=== PATIENT | male | born 1975 | race Caucasian/White ===

== ENCOUNTER 2017-08-19 17:43 | Emergency (ER) | payer MEDICAID ==
[~2017-08-19] VITALS: Ht 190.5 cm; Wt 138.8 kg
[2017-08-19 18:07] VITALS: BP_SYST 153
== END 2017-08-19 18:17 | disposition left against medical advice (07) ==
LOC: SED 17:43
DX: T82.49XA Other complication of vascular dialysis catheter, initial encounter (principal); Z88.1 Allergy status to other antibiotic agents

== ENCOUNTER 2023-02-07 10:22 | Inpatient (IN) | payer MEDICAID ==
[~2023-02-07] VITALS: Ht 190.5 cm; Wt 143.8 kg
[2023-02-07 10:23] VITALS: BP_SYST 221; PULSE 62; RESP 17; TEMP 97; O2SAT 99
[2023-02-07] MEDS ORDERED: DEXTROSE 50% JECT 50 ML DISP.SYRIN ONE (10:28)
[2023-02-07] MEDS ORDERED: DEXTROSE 10%-WATER 500 ML IV SCH ×2 (10:30)
[2023-02-07] MEDS ORDERED: DEXTROSE 50% JECT 50 ML DISP.SYRIN IVP ONE (10:30)
[2023-02-07] MEDS ORDERED: ONDANSETRON HCL 4 MG/2 ML VIAL ONE (10:41)
[2023-02-07] MEDS ORDERED: ONDANSETRON HCL 4 MG/2 ML VIAL IVP ONE (10:45)
[2023-02-07 11:05] LABS: BASOPHILS # (AUTO) 0.1 K/uL (0.0-0.2); BASOPHILS % (AUTO) 0.7 % (0.0-2.0); EOSINOPHILS # (AUTO) 0.4 K/uL (0.0-0.4); EOSINOPHILS % (AUTO) 3.3 % (0.0-4.0); HEMATOCRIT 29.9 % (36-54); HEMOGLOBIN 9.9 g/dL (14.0-18.0); LYMPHOCYTES # (AUTO) 1.5 K/uL (1.0-5.5); LYMPHOCYTES % (AUTO) 13.9 % (20.5-51.5); MEAN CORPUSCULAR HEMOGLOBIN 29 pg (27-31); MEAN CORPUSCULAR HGB CONC 33 % (32-36); MEAN CORPUSCULAR VOLUME 87 fL (79.0-98.0); MONOCYTES # (AUTO) 0.9 K/uL (0.0-1.0); MONOCYTES % (AUTO) 8.1 % (1.7-9.3); NEUTROPHILS # (AUTO) 7.8 K/uL (1.8-7.7); PLATELET COUNT (AUTO) 235 K/uL (130-430); RED BLOOD CELL COUNT(AUTO) 3.45 MIL/uL (4.2-6.2); RED CELL DISTRIBUTION WIDTH 13.3 % (9.0-15.0); WHITE BLOOD COUNT (AUTO) 10.6 K/uL (4.8-10.8)
[2023-02-07 11:25] LABS: CALCIUM 8.1 mg/dL (8.4-11.0); CREATININE 6.98 mg/dL (0.55-1.30); POTASSIUM 4.1 mmol/L (3.5-5.1)
[2023-02-07 11:27] LABS: ALBUMIN 2.7 g/dL (3.4-4.8); TOTAL BILIRUBIN 0.3 mg/dL (0.0-1.0)
[2023-02-07] MEDS ORDERED: D10W 250 ML IV SCH (11:45)
[2023-02-07] MEDS ORDERED: hydrALAZINE HCL 20 MG/ML VIAL IVP ONE (11:45)
[2023-02-07] MEDS ORDERED: CETIRIZINE (14:28)
[2023-02-07] MEDS ORDERED: CARV25TA55 PO (14:28)
[2023-02-07] MEDS ORDERED: FURO40TA5 PO (14:28)
[2023-02-07] MEDS ORDERED: INSU100V35 SUBCUT (14:28)
[2023-02-07] MEDS ORDERED: ISOS20TA8 PO (14:28)
[2023-02-07] MEDS ORDERED: HYDR100T25 PO (14:28)
[2023-02-07] MEDS ORDERED: ONDANSETRON HCL 4 MG/2 ML VIAL IVP PRN (15:15)
[2023-02-07] MEDS ORDERED: MORPHINE 2 MG/ML INJ. SYRINGE IVP PRN ×2 (15:15)
[2023-02-07] MEDS ORDERED: DOCUSATE SODIUM 100 MG CAPSULE PO PRN (15:15)
[2023-02-07] MEDS ORDERED: MUPIROCIN 2% TOPICAL OINTMENT 22 GM NS PRN (15:15)
[2023-02-07] MEDS ORDERED: POTASSIUM CHLORIDE 20 MEQ TAB.PRT.SR PO PRN (15:15)
[2023-02-07] MEDS ORDERED: ACETAMINOPHEN 325 MG TABLET PO PRN ×2 (15:15→15:30)
[2023-02-07] MEDS ORDERED: ZOLPIDEM TARTRATE 5 MG TABLET PO PRN (15:15)
[2023-02-07] MEDS ORDERED: MAGNESIUM SULFATE 50 ML IV PRN (15:15)
[2023-02-07] MEDS ORDERED: LORazepam 2 MG/ML VIAL IVP PRN (15:15)
[2023-02-07] MEDS ORDERED: NALOXONE HCL 0.4 MG/ML AMP (NARCAN) IVP PRN ×2 (15:15)
[2023-02-07] MEDS ORDERED: cloNIDine HCL 0.2 MG TABLET PO PRN (15:30)
[2023-02-07] MEDS: NACL 0.9% 1,000 ML IV SCH ×2 (15:30→21:37)
[2023-02-07 15:57] LABS: TOTAL IRON BIND. CAPACITY 221 ug/dL (250-450)
[2023-02-07] MEDS ORDERED: cloNIDine HCL 0.1 MG TABLET ONE (17:16)
[2023-02-07] MEDS: INSULIN REGULAR, HUMAN 100 UNITS/ML, 3 ML VIAL (humuLIN R) SUBCUT PRN ×2 (18:18→21:32)
[2023-02-07] MEDS ORDERED: INSULIN REGULAR, HUMAN 10 UNITS/0.1 ML, 3 ML VIAL ONE (18:19)
[2023-02-07] MEDS ORDERED: INSULIN Lispro 100 UNITS/ML, 3 ML VIAL (humaLOG) ONE (18:31)
[2023-02-07] MEDS ORDERED: METOPROLOL TARTRATE 5 MG/5 ML VIAL IVP PRN (19:15)
[2023-02-07] MEDS ORDERED: NIFEDIPINE 90 MG TABLET.SA (PROCARDIA XL 90 MG) PO ONE (19:15)
[2023-02-07] MEDS ORDERED: INSULIN NPH/REGULAR 70-30, 100 UNITS/ML, 3 ML VIAL SUBCUT ONE (19:15)
[2023-02-07] MEDS: hydrALAZINE HCL 25 MG TABLET PO SCH (21:22)
[2023-02-07] MEDS: CARVEDILOL 25 MG TABLET (COREG) PO SCH (21:23)
[2023-02-07] MEDS: ISOSORBIDE DINITRATE 20 MG TABLET (ISORDIL) PO SCH (21:24)
[2023-02-07] MEDS: INSULIN GLARGINE 100 UNITS/ML, 10 ML VIAL SUBCUT SCH (21:30)
[2023-02-07 21:38] VITALS: BP_SYST 123; PULSE 80; RESP 17; TEMP 97.3; O2SAT 98
[2023-02-07 23:40] VITALS: BP_SYST 125; PULSE 88; RESP 18; TEMP 97.8; O2SAT 96
[2023-02-08] MEDS: INSULIN REGULAR, HUMAN 100 UNITS/ML, 3 ML VIAL (humuLIN R) SUBCUT PRN ×3 (06:29→21:53)
[2023-02-08] MEDS: NACL 0.9% 1,000 ML IV SCH ×2 (07:15→18:37)
[2023-02-08 07:36] LABS: BASOPHILS % (AUTO) 0.7 % (0.0-2.0); EOSINOPHILS # (AUTO) 0.2 K/uL (0.0-0.4); EOSINOPHILS % (AUTO) 2.8 % (0.0-4.0); HEMATOCRIT 26.1 % (36-54); HEMOGLOBIN 8.8 g/dL (14.0-18.0); LYMPHOCYTES # (AUTO) 1.3 K/uL (1.0-5.5); MEAN CORPUSCULAR HEMOGLOBIN 29 pg (27-31); MEAN CORPUSCULAR HGB CONC 34 % (32-36); MEAN CORPUSCULAR VOLUME 87 fL (79.0-98.0); MONOCYTES # (AUTO) 0.7 K/uL (0.0-1.0); MONOCYTES % (AUTO) 10.1 % (1.7-9.3); NEUTROPHILS # (AUTO) 4.3 K/uL (1.8-7.7); NEUTROPHILS % (AUTO) 66.4 % (40.0-70.0); PLATELET COUNT (AUTO) 199 K/uL (130-430); RED BLOOD CELL COUNT(AUTO) 3.01 MIL/uL (4.2-6.2); RED CELL DISTRIBUTION WIDTH 13.3 % (9.0-15.0); WHITE BLOOD COUNT (AUTO) 6.5 K/uL (4.8-10.8)
[2023-02-08 07:43] LABS: CALCIUM 7.4 mg/dL (8.4-11.0); POTASSIUM 5.1 mmol/L (3.5-5.1)
[2023-02-08 07:45] VITALS: BP_SYST 111; PULSE 73; RESP 16; TEMP 97.6; O2SAT 96
[2023-02-08 07:48] LABS: CREATININE 7.85 mg/dL (0.55-1.30)
[2023-02-08] MEDS: hydrALAZINE HCL 25 MG TABLET PO SCH ×3 (09:52→21:39)
[2023-02-08] MEDS: ISOSORBIDE DINITRATE 20 MG TABLET (ISORDIL) PO SCH ×2 (09:53→15:39)
[2023-02-08] MEDS: CARVEDILOL 25 MG TABLET (COREG) PO SCH ×2 (09:53→21:40)
[2023-02-08] MEDS: FERROUS SULFATE 325 MG TABLET.DR PO SCH (09:53)
[2023-02-08] MEDS: NIFEDIPINE 90 MG TABLET.SA (PROCARDIA XL 90 MG) PO SCH (09:54)
[2023-02-08 12:00] VITALS: BP_SYST 114; PULSE 74; RESP 18; TEMP 97.9; O2SAT 96
[2023-02-08 16:00] VITALS: BP_SYST 121; PULSE 78; RESP 19; TEMP 97.7; O2SAT 97
[2023-02-08 20:15] VITALS: O2SAT 96
[2023-02-08 20:30] VITALS: BP_SYST 119; PULSE 83; RESP 18; TEMP 98.8; O2SAT 96
[2023-02-08] MEDS: SODIUM BICARBONATE 650 MG TABLET PO SCH (21:00)
[2023-02-08] MEDS: INSULIN GLARGINE 100 UNITS/ML, 10 ML VIAL SUBCUT SCH (21:00)
[2023-02-09 01:00] VITALS: BP_SYST 138; PULSE 76; RESP 18; TEMP 98
[2023-02-09] MEDS: ISOSORBIDE DINITRATE 20 MG TABLET (ISORDIL) PO SCH ×4 (01:12→21:00)
[2023-02-09] MEDS: SODIUM BICARBONATE 650 MG TABLET PO SCH ×3 (05:55→20:59)
[2023-02-09] MEDS: NACL 0.9% 1,000 ML IV SCH ×2 (06:01→14:51)
[2023-02-09 07:22] LABS: BASOPHILS # (AUTO) 0.1 K/uL (0.0-0.2); BASOPHILS % (AUTO) 0.7 % (0.0-2.0); EOSINOPHILS # (AUTO) 0.3 K/uL (0.0-0.4); EOSINOPHILS % (AUTO) 4.6 % (0.0-4.0); HEMOGLOBIN 8.7 g/dL (14.0-18.0); LYMPHOCYTES # (AUTO) 1.7 K/uL (1.0-5.5); LYMPHOCYTES % (AUTO) 24.1 % (20.5-51.5); MEAN CORPUSCULAR HEMOGLOBIN 29 pg (27-31); MEAN CORPUSCULAR HGB CONC 33 % (32-36); MEAN CORPUSCULAR VOLUME 87 fL (79.0-98.0); MONOCYTES # (AUTO) 0.5 K/uL (0.0-1.0); MONOCYTES % (AUTO) 7.6 % (1.7-9.3); NEUTROPHILS # (AUTO) 4.4 K/uL (1.8-7.7); PLATELET COUNT (AUTO) 191 K/uL (130-430); RED BLOOD CELL COUNT(AUTO) 3.01 MIL/uL (4.2-6.2); RED CELL DISTRIBUTION WIDTH 13.3 % (9.0-15.0); WHITE BLOOD COUNT (AUTO) 6.9 K/uL (4.8-10.8)
[2023-02-09 07:34] LABS: CALCIUM 7.5 mg/dL (8.4-11.0); POTASSIUM 4.6 mmol/L (3.5-5.1)
[2023-02-09 07:38] LABS: CREATININE 8.34 mg/dL (0.55-1.30)
[2023-02-09 08:00] VITALS: BP_SYST 160; PULSE 84; RESP 16; TEMP 97.7; O2SAT 96; O2SAT 97
[2023-02-09] MEDS: hydrALAZINE HCL 25 MG TABLET PO SCH ×3 (08:53→21:01)
[2023-02-09] MEDS: FERROUS SULFATE 325 MG TABLET.DR PO SCH (08:54)
[2023-02-09] MEDS: CARVEDILOL 25 MG TABLET (COREG) PO SCH ×2 (08:54→21:00)
[2023-02-09] MEDS: NIFEDIPINE 90 MG TABLET.SA (PROCARDIA XL 90 MG) PO SCH (08:55)
[2023-02-09 12:27] VITALS: BP_SYST 150; PULSE 80; RESP 17; TEMP 97.9; O2SAT 97
[2023-02-09 16:48] VITALS: BP_SYST 154; PULSE 83; RESP 16; TEMP 97.8; O2SAT 96
[2023-02-09 20:00] VITALS: BP_SYST 146; PULSE 82; RESP 18; TEMP 97.8; O2SAT 96
[2023-02-09] MEDS: INSULIN GLARGINE 100 UNITS/ML, 10 ML VIAL SUBCUT SCH (21:00)
[2023-02-10 00:07] VITALS: BP_SYST 149; PULSE 81; RESP 18; TEMP 98.3; O2SAT 95
[2023-02-10] MEDS ORDERED: DEXTROSE 50% JECT 50 ML DISP.SYRIN ONE (00:50)
[2023-02-10] MEDS ORDERED: D5W 1,000 ML IV PRN (01:00)
[2023-02-10] MEDS ORDERED: GLUCOSE (DEXTROSE) ORAL GEL -Adults PO PRN (01:00)
[2023-02-10] MEDS ORDERED: DEXTROSE 50% JECT 50 ML DISP.SYRIN IVP PRN (01:00)
[2023-02-10] MEDS: NACL 0.9% 1,000 ML IV SCH ×2 (06:06→17:10)
[2023-02-10 06:34] LABS: BASOPHILS % (AUTO) 0.6 % (0.0-2.0); EOSINOPHILS # (AUTO) 0.2 K/uL (0.0-0.4); EOSINOPHILS % (AUTO) 4.2 % (0.0-4.0); HEMATOCRIT 23.5 % (36-54); HEMOGLOBIN 7.9 g/dL (14.0-18.0); LYMPHOCYTES # (AUTO) 1.2 K/uL (1.0-5.5); LYMPHOCYTES % (AUTO) 19.4 % (20.5-51.5); MEAN CORPUSCULAR HEMOGLOBIN 29 pg (27-31); MEAN CORPUSCULAR HGB CONC 34 % (32-36); MEAN CORPUSCULAR VOLUME 87 fL (79.0-98.0); MONOCYTES # (AUTO) 0.4 K/uL (0.0-1.0); MONOCYTES % (AUTO) 7.4 % (1.7-9.3); NEUTROPHILS # (AUTO) 4.1 K/uL (1.8-7.7); NEUTROPHILS % (AUTO) 68.4 % (40.0-70.0); PLATELET COUNT (AUTO) 179 K/uL (130-430); RED CELL DISTRIBUTION WIDTH 13.4 % (9.0-15.0)
[2023-02-10 07:02] LABS: CALCIUM 7.3 mg/dL (8.4-11.0)
[2023-02-10 07:06] LABS: CREATININE 7.91 mg/dL (0.55-1.30)
[2023-02-10 08:00] VITALS: BP_SYST 150; PULSE 78; RESP 16; TEMP 98.4; O2SAT 96; O2SAT 97
[2023-02-10] MEDS: hydrALAZINE HCL 25 MG TABLET PO SCH ×3 (09:49→21:07)
[2023-02-10] MEDS: CARVEDILOL 25 MG TABLET (COREG) PO SCH ×2 (09:50→21:07)
[2023-02-10] MEDS: FERROUS SULFATE 325 MG TABLET.DR PO SCH (09:50)
[2023-02-10] MEDS: ISOSORBIDE DINITRATE 20 MG TABLET (ISORDIL) PO SCH ×3 (09:50→21:05)
[2023-02-10] MEDS: NIFEDIPINE 90 MG TABLET.SA (PROCARDIA XL 90 MG) PO SCH (09:51)
[2023-02-10] MEDS: SODIUM BICARBONATE 650 MG TABLET PO SCH ×3 (09:51→21:05)
[2023-02-10] MEDS ORDERED: SODIUM ZIRCONIUM CYCLOSILICATE 10 GM POWD.PACK PO ONE (11:15)
[2023-02-10] MEDS ORDERED: EPOETIN ALFA-EPBX 20,000 UNITS/ML VIAL SUBCUT ONE (13:30)
[2023-02-10 14:15] VITALS: BP_SYST 139; PULSE 85; RESP 16; TEMP 98.1; O2SAT 95
[2023-02-11 00:44] VITALS: BP_SYST 140; PULSE 86; RESP 18; TEMP 97.5; O2SAT 97
[2023-02-11 05:53] LABS: BASOPHILS % (AUTO) 0.7 % (0.0-2.0); EOSINOPHILS # (AUTO) 0.2 K/uL (0.0-0.4); EOSINOPHILS % (AUTO) 4.6 % (0.0-4.0); HEMATOCRIT 24.3 % (36-54); HEMOGLOBIN 7.9 g/dL (14.0-18.0); LYMPHOCYTES # (AUTO) 1.5 K/uL (1.0-5.5); LYMPHOCYTES % (AUTO) 31.9 % (20.5-51.5); MEAN CORPUSCULAR HEMOGLOBIN 29 pg (27-31); MEAN CORPUSCULAR HGB CONC 33 % (32-36); MEAN CORPUSCULAR VOLUME 88 fL (79.0-98.0); MONOCYTES # (AUTO) 0.5 K/uL (0.0-1.0); MONOCYTES % (AUTO) 10.9 % (1.7-9.3); NEUTROPHILS # (AUTO) 2.5 K/uL (1.8-7.7); NEUTROPHILS % (AUTO) 51.9 % (40.0-70.0); PLATELET COUNT (AUTO) 183 K/uL (130-430); RED BLOOD CELL COUNT(AUTO) 2.77 MIL/uL (4.2-6.2); RED CELL DISTRIBUTION WIDTH 13.6 % (9.0-15.0); WHITE BLOOD COUNT (AUTO) 4.8 K/uL (4.8-10.8)
[2023-02-11 06:12] LABS: CALCIUM 7.3 mg/dL (8.4-11.0); POTASSIUM 4.9 mmol/L (3.5-5.1)
[2023-02-11 06:26] LABS: CREATININE 7.93 mg/dL (0.55-1.30)
[2023-02-11] MEDS: NACL 0.9% 1,000 ML IV SCH (07:19)
[2023-02-11 08:03] VITALS: BP_SYST 171; PULSE 87; RESP 17; TEMP 97.8; O2SAT 98
[2023-02-11] MEDS: FERROUS SULFATE 325 MG TABLET.DR PO SCH (08:17)
[2023-02-11] MEDS: SODIUM BICARBONATE 650 MG TABLET PO SCH ×2 (08:17→14:54)
[2023-02-11] MEDS: CARVEDILOL 25 MG TABLET (COREG) PO SCH (08:18)
[2023-02-11] MEDS: NIFEDIPINE 90 MG TABLET.SA (PROCARDIA XL 90 MG) PO SCH (08:18)
[2023-02-11] MEDS: ISOSORBIDE DINITRATE 20 MG TABLET (ISORDIL) PO SCH ×2 (08:19→14:54)
[2023-02-11] MEDS: hydrALAZINE HCL 25 MG TABLET PO SCH ×2 (08:20→14:54)
[2023-02-11 10:07] VITALS: BP_SYST 165; PULSE 93; RESP 18; TEMP 98.4; O2SAT 97
[2023-02-11] MEDS ORDERED: NIFE90TA24 PO (11:48)
[2023-02-11] MEDS ORDERED: hydrALAZINE HCL 20 MG/ML VIAL IVP PRN (12:00)
[2023-02-11 14:00] VITALS: BP_SYST 153; PULSE 89; RESP 18; TEMP 98.2; O2SAT 97
[2023-02-11 15:05] VITALS: BP_SYST 153; PULSE 89; RESP 20; TEMP 98.2; O2SAT 97
== END 2023-02-11 16:34 | disposition home or self-care (01) | DRG 420 ==
LOC: SED 10:22 → SMU 14:10 → STU 19:47
PROVIDERS: ADMIT General Practice; ATTEND General Practice
DX: E10.649 Type 1 diabetes mellitus with hypoglycemia without coma (principal); N17.0 Acute kidney failure with tubular necrosis; E44.0 Moderate protein-calorie malnutrition; D63.1 Anemia in chronic kidney disease; I12.0 Hypertensive chronic kidney disease with stage 5 chronic kidney disease or end stage renal disease; N18.6 End stage renal disease; D50.9 Iron deficiency anemia, unspecified; T38.3X5A Adverse effect of insulin and oral hypoglycemic [antidiabetic] drugs, initial encounter; I16.0 Hypertensive urgency; E78.5 Hyperlipidemia, unspecified; E66.9 Obesity, unspecified; I25.10 Atherosclerotic heart disease of native coronary artery without angina pectoris; Z96.41 Presence of insulin pump (external) (internal); E87.5 Hyperkalemia; E10.22 Type 1 diabetes mellitus with diabetic chronic kidney disease; Z79.4 Long term (current) use of insulin; Z95.0 Presence of cardiac pacemaker; Z68.39 Body mass index [BMI] 39.0-39.9, adult
CPT/HCPCS: 36415; 71045; 76770; 80048; 80053; 82607; 82728; 82746; 82962; 83037; 83540; 83550; 83735; 83880; 84443; 85025; 96361; 96374; 96375; 99285; G0378; J0360; J1815; J2405; J3490; Q5106

== ENCOUNTER 2023-03-21 14:21 | Emergency (ER) | payer MEDICAID ==
[~2023-03-21] VITALS: Ht 190.5 cm; Wt 136.1 kg
[~2023-03-21 14:21] MED LIST: CARV25TA55 PO; CETIRIZINE; FURO40TA5 PO; HYDR100T25 PO; INSU100V35 SUBCUT; ISOS20TA8 PO; NIFE90TA24 PO
[2023-03-21 14:44] VITALS: BP_SYST 145; PULSE 81; RESP 19; TEMP 97.4; O2SAT 100
[2023-03-21] MEDS ORDERED: NS 500 ML IV ONE (15:00)
[2023-03-21] MEDS ORDERED: ACETAMINOPHEN 500 MG TABLET PO ONE (15:00)
[2023-03-21] MEDS ORDERED: DIPHENHYDRAMINE INJ 50 MG/ML VIAL IVP ONE (15:00)
[2023-03-21] MEDS ORDERED: METOCLOPRAMIDE HCL 10 MG/2 ML VIAL IVP ONE (15:00)
[2023-03-21 16:21] LABS: BASOPHILS # (AUTO) 0.1 K/uL (0.0-0.2); BASOPHILS % (AUTO) 0.9 % (0.0-2.0); EOSINOPHILS # (AUTO) 0.3 K/uL (0.0-0.4); EOSINOPHILS % (AUTO) 4.1 % (0.0-4.0); HEMOGLOBIN 8.5 g/dL (14.0-18.0); LYMPHOCYTES # (AUTO) 1.1 K/uL (1.0-5.5); LYMPHOCYTES % (AUTO) 15.9 % (20.5-51.5); MEAN CORPUSCULAR HEMOGLOBIN 30 pg (27-31); MEAN CORPUSCULAR HGB CONC 34 % (32-36); MEAN CORPUSCULAR VOLUME 88 fL (79.0-98.0); MONOCYTES # (AUTO) 0.6 K/uL (0.0-1.0); MONOCYTES % (AUTO) 8.7 % (1.7-9.3); NEUTROPHILS # (AUTO) 4.8 K/uL (1.8-7.7); NEUTROPHILS % (AUTO) 70.4 % (40.0-70.0); PLATELET COUNT (AUTO) 280 K/uL (130-430); RED BLOOD CELL COUNT(AUTO) 2.86 MIL/uL (4.2-6.2); RED CELL DISTRIBUTION WIDTH 15.9 % (9.0-15.0); WHITE BLOOD COUNT (AUTO) 6.8 K/uL (4.8-10.8)
[2023-03-21] MEDS ORDERED: GUAI-723 PO (16:26)
[2023-03-21 16:43] LABS: CALCIUM 9.5 mg/dL (8.4-11.0); CREATININE 4.75 mg/dL (0.55-1.30); POTASSIUM 3.5 mmol/L (3.5-5.1)
[2023-03-21 16:53] VITALS: BP_SYST 165; PULSE 77; RESP 18; TEMP 98; O2SAT 97
[2023-03-21 16:57] LABS: ALBUMIN 2.8 g/dL (3.4-4.8); TOTAL BILIRUBIN 0.2 mg/dL (0.0-1.0); TOTAL PROTEIN, SERUM 7.7 g/dL (6.4-8.3)
== END 2023-03-21 17:07 | disposition home or self-care (01) ==
LOC: SED 14:21
DX: R51.9 Headache, unspecified (principal); R09.81 Nasal congestion; I12.0 Hypertensive chronic kidney disease with stage 5 chronic kidney disease or end stage renal disease; N18.6 End stage renal disease; I11.0 Hypertensive heart disease with heart failure; I50.9 Heart failure, unspecified; Z79.899 Other long term (current) drug therapy
CPT/HCPCS: 99284; 96374; 96375; 80053; 82962; 85025; 36415; 93005; J1200; J2765

== ENCOUNTER 2024-02-18 07:07 | Inpatient (IN) | payer MEDICARE, MEDICAID ==
[~2024-02-18] VITALS: Ht 190.5 cm; Wt 137.4 kg
[~2024-02-18 07:07] MED LIST changes: +GUAI-723 PO; +HYDR100T13 PO; -HYDR100T25 PO
[2024-02-18 07:15] VITALS: BP_SYST 102; PULSE 83; RESP 18; TEMP 96.9; O2SAT 98
[2024-02-18 07:45] LABS: BASOPHILS # (AUTO) 0.1 K/uL (0.0-0.2); BASOPHILS % (AUTO) 0.5 % (0.0-2.0); EOSINOPHILS # (AUTO) 0.2 K/uL (0.0-0.4); EOSINOPHILS % (AUTO) 1.5 % (0.0-4.0); HEMATOCRIT 27.9 % (36-54); HEMOGLOBIN 9.4 g/dL (14.0-18.0); MEAN CORPUSCULAR HEMOGLOBIN 32 pg (27-31); MEAN CORPUSCULAR HGB CONC 34 % (32-36); MEAN CORPUSCULAR VOLUME 96 fL (79.0-98.0); MONOCYTES # (AUTO) 1.4 K/uL (0.0-1.0); MONOCYTES % (AUTO) 11.3 % (1.7-9.3); NEUTROPHILS # (AUTO) 9.5 K/uL (1.8-7.7); NEUTROPHILS % (AUTO) 78.7 % (40.0-70.0); PLATELET COUNT (AUTO) 352 K/uL (130-430); RED BLOOD CELL COUNT(AUTO) 2.92 MIL/uL (4.2-6.2); RED CELL DISTRIBUTION WIDTH 13.6 % (9.0-15.0); WHITE BLOOD COUNT (AUTO) 12.1 K/uL (4.8-10.8)
[2024-02-18 08:00] LABS: PROTHROMBIN TIME 10.9 SECS (9.5-12.5)
[2024-02-18 08:04] LABS: ALANINE AMINOTRANSFERASE 13 U/L (12-78); ALBUMIN 2.7 g/dL (3.4-4.8); ANION GAP 17 (5-15); ASPARTATE AMINOTRANSFERASE 13 U/L (10-37); BILIRUBIN,DIRECT 0.1 mg/dL (0.0-0.3); CALCIUM 8.8 mg/dL (8.4-11.0); CARBON DIOXIDE 24 mmol/L (23-29); CHLORIDE 90 mmol/L (98-107); GFR AFRICAN AMERICAN 6 mL/min (>90); GLUCOSE 121 mg/dL (74-106); POTASSIUM 4.3 mmol/L (3.5-5.1); SODIUM SERUM 131 mmol/L (136-145); TOTAL BILIRUBIN 0.6 mg/dL (0.0-1.0); TOTAL PROTEIN, SERUM 6.9 g/dL (6.4-8.3); UREA NITROGEN, BLOOD 87 mg/dL (8-21)
[2024-02-18 08:06] LABS: GFR NON AFRICAN-AMERICAN 5 mL/min (>90)
[2024-02-18 08:09] LABS: CREATININE 11.07 mg/dL (0.55-1.30)
[2024-02-18] MEDS ORDERED: ECO81 PO (11:47)
[2024-02-18] MEDS ORDERED: INSU100V35 (11:47)
[2024-02-18] MEDS ORDERED: SUCR500T PO (11:47)
[2024-02-18] MEDS ORDERED: OXYC-128 PO (11:47)
[2024-02-18] MEDS ORDERED: FOLI0.8T2 PO (11:47)
[2024-02-18] MEDS ORDERED: [UNRECOGNIZED DRUG - CODE] PO (11:47)
[2024-02-18] MEDS ORDERED: ICOS1CAP PO (11:47)
[2024-02-18] MEDS ORDERED: FOLI-43 PO (11:47)
[2024-02-18] MEDS ORDERED: CETI10CA11 PO (11:47)
[2024-02-18] MEDS ORDERED: FURO40TA5 PO (11:47)
[2024-02-18] MEDS ORDERED: TEST200V IM (11:47)
[2024-02-18] MEDS ORDERED: BRIM15DR8 LEFT EYE (11:47)
[2024-02-18] MEDS ORDERED: LATA2.5D14 LEFT EYE (11:47)
[2024-02-18] MEDS ORDERED: DOCU-144 PO (11:47)
[2024-02-18] MEDS ORDERED: DORZ10DR10 BOTH EYES (11:47)
[2024-02-18] MEDS ORDERED: MORPHINE 2 MG/ML INJ. SYRINGE IVP PRN (12:00)
[2024-02-18] MEDS ORDERED: LORazepam 2 MG/ML VIAL IVP PRN (12:00)
[2024-02-18] MEDS: NACL 0.9% 1,000 ML IV SCH (12:49)
[2024-02-18 15:59] VITALS: BP_SYST 156; PULSE 90; RESP 17; TEMP 97.2
[2024-02-18 16:11] VITALS: O2SAT 100
[2024-02-18] MEDS: ASPIRIN 81 MG TABLET(ECOTRIN) PO ONE (18:02)
[2024-02-18] MEDS: FUROSEMIDE 40 MG TABLET PO ONE (18:02)
[2024-02-18] MEDS: hydrALAZINE HCL 25 MG TABLET PO ONE (18:02)
[2024-02-18] MEDS: DOCUSATE SODIUM 100 MG CAPSULE PO ONE (18:02)
[2024-02-18] MEDS: ISOSORBIDE DINITRATE 20 MG TABLET (ISORDIL) PO ONE (18:02)
[2024-02-18] MEDS: CARVEDILOL 25 MG TABLET (COREG) PO ONE (18:03)
[2024-02-18] MEDS ORDERED: INSULIN REGULAR, HUMAN 100 UNITS/ML, 3 ML VIAL (humuLIN R) SUBCUT PRN (20:30)
[2024-02-18 20:50] VITALS: BP_SYST 143; PULSE 94; RESP 18; TEMP 97.9; O2SAT 98
[2024-02-18] MEDS: BRIMONIDINE TARTRATE 0.2% 5 mL EYE DROPS LEFT EYE SCH (21:00)
[2024-02-18] MEDS: DORZOLAMIDE HCL/TIMOLOL MAL. 10 ML EYE DROPS (COSOPT) BOTH EYES SCH (21:00)
[2024-02-18] MEDS: HEPARIN SODIUM,PORCINE 5,000 UNITS/ML VIAL IVP PRN (21:50)
[2024-02-18] MEDS: LATANOPROST 2.5 ML DROPS (XALATAN) LEFT EYE SCH (22:21)
[2024-02-18] MEDS: HYDROcodone/ACETAMIN 5-325 MG TAB (NORCO/ VICODIN) PO PRN (22:21)
[2024-02-19 00:10] VITALS: BP_SYST 144; PULSE 95; RESP 18; TEMP 98.2; O2SAT 96
[2024-02-19 07:07] LABS: BASOPHILS % (AUTO) 0.6 % (0.0-2.0); EOSINOPHILS # (AUTO) 0.1 K/uL (0.0-0.4); EOSINOPHILS % (AUTO) 1.4 % (0.0-4.0); HEMATOCRIT 28.7 % (36-54); HEMOGLOBIN 9.9 g/dL (14.0-18.0); LYMPHOCYTES # (AUTO) 1.1 K/uL (1.0-5.5); LYMPHOCYTES % (AUTO) 16.8 % (20.5-51.5); MEAN CORPUSCULAR HEMOGLOBIN 33 pg (27-31); MEAN CORPUSCULAR HGB CONC 35 % (32-36); MEAN CORPUSCULAR VOLUME 95 fL (79.0-98.0); MONOCYTES # (AUTO) 1.1 K/uL (0.0-1.0); MONOCYTES % (AUTO) 15.6 % (1.7-9.3); NEUTROPHILS # (AUTO) 4.4 K/uL (1.8-7.7); NEUTROPHILS % (AUTO) 65.6 % (40.0-70.0); PLATELET COUNT (AUTO) 301 K/uL (130-430); RED BLOOD CELL COUNT(AUTO) 3.04 MIL/uL (4.2-6.2); RED CELL DISTRIBUTION WIDTH 13.9 % (9.0-15.0); WHITE BLOOD COUNT (AUTO) 6.8 K/uL (4.8-10.8)
[2024-02-19 07:47] LABS: ALBUMIN 2.6 g/dL (3.4-4.8); CALCIUM 8.8 mg/dL (8.4-11.0); PHOSPHORUS 6.6 mg/dL (2.7-4.5); POTASSIUM 3.4 mmol/L (3.5-5.1); TOTAL BILIRUBIN 0.4 mg/dL (0.0-1.0); TOTAL PROTEIN, SERUM 6.9 g/dL (6.4-8.3)
[2024-02-19 08:00] VITALS: O2SAT 95
[2024-02-19 08:28] LABS: CREATININE 8.22 mg/dL (0.55-1.30)
[2024-02-19 08:30] VITALS: BP_SYST 137; RESP 14; TEMP 98
[2024-02-19] MEDS: DOCUSATE SODIUM 100 MG CAPSULE PO SCH (09:15)
[2024-02-19] MEDS: ISOSORBIDE DINITRATE 20 MG TABLET (ISORDIL) PO SCH (09:15)
[2024-02-19] MEDS: NIFEDIPINE 90 MG TABLET.SA (PROCARDIA XL 90 MG) PO SCH (09:16)
[2024-02-19] MEDS: FUROSEMIDE 40 MG TABLET PO SCH (09:16)
[2024-02-19] MEDS: hydrALAZINE HCL 25 MG TABLET PO SCH (09:17)
[2024-02-19] MEDS: CARVEDILOL 25 MG TABLET (COREG) PO SCH (09:18)
[2024-02-19] MEDS: ASPIRIN 81 MG TABLET(ECOTRIN) PO SCH (09:18)
[2024-02-19] MEDS: BRIMONIDINE TARTRATE 0.2% 5 mL EYE DROPS LEFT EYE SCH (09:40)
[2024-02-19 12:51] VITALS: BP_SYST 142; PULSE 88; RESP 16; TEMP 97.4; O2SAT 93
[2024-02-19] MEDS: GABAPENTIN 100 MG CAPSULE PO SCH (15:16)
[2024-02-19 16:35] VITALS: BP_SYST 153; PULSE 81; RESP 18; TEMP 96.9; O2SAT 94
[2024-02-19 20:00] VITALS: BP_SYST 131; PULSE 87; RESP 18; TEMP 98.2; O2SAT 96
[2024-02-19] MEDS: SENNA 8.8 MG/5 ML UDC GT SCH (21:00)
[2024-02-20 06:45] LABS: BASOPHILS % (AUTO) 0.4 % (0.0-2.0); EOSINOPHILS # (AUTO) 0.1 K/uL (0.0-0.4); EOSINOPHILS % (AUTO) 1.8 % (0.0-4.0); HEMATOCRIT 27.7 % (36-54); HEMOGLOBIN 9.4 g/dL (14.0-18.0); LYMPHOCYTES % (AUTO) 15.3 % (20.5-51.5); MEAN CORPUSCULAR HEMOGLOBIN 32 pg (27-31); MEAN CORPUSCULAR HGB CONC 34 % (32-36); MEAN CORPUSCULAR VOLUME 95 fL (79.0-98.0); MONOCYTES % (AUTO) 15.8 % (1.7-9.3); NEUTROPHILS # (AUTO) 4.3 K/uL (1.8-7.7); NEUTROPHILS % (AUTO) 66.7 % (40.0-70.0); PLATELET COUNT (AUTO) 260 K/uL (130-430); RED BLOOD CELL COUNT(AUTO) 2.92 MIL/uL (4.2-6.2); RED CELL DISTRIBUTION WIDTH 14.1 % (9.0-15.0); WHITE BLOOD COUNT (AUTO) 6.5 K/uL (4.8-10.8)
[2024-02-20 07:32] LABS: ALBUMIN 2.3 g/dL (3.4-4.8); POTASSIUM 3.3 mmol/L (3.5-5.1); TOTAL BILIRUBIN 0.3 mg/dL (0.0-1.0); TOTAL PROTEIN, SERUM 6.7 g/dL (6.4-8.3)
[2024-02-20 08:00] VITALS: BP_SYST 153; PULSE 83; RESP 16; TEMP 97.5; O2SAT 97
[2024-02-20 08:02] LABS: CREATININE 7.82 mg/dL (0.55-1.30)
[2024-02-20] MEDS: POLYETHYLENE GLYCOL 3350, 17 GM/ POWD.PACK PO SCH (09:35)
[2024-02-20 12:41] VITALS: BP_SYST 110; PULSE 80; RESP 18; TEMP 96.8; O2SAT 95
[2024-02-20 16:46] VITALS: BP_SYST 100; PULSE 79; RESP 18; TEMP 96.9; O2SAT 96
[2024-02-20 20:00] VITALS: O2SAT 94
[2024-02-21] MEDS: INSULIN GLARGINE 100 UNITS/ML, 10 ML VIAL SUBCUT ONE (00:23)
[2024-02-21] MEDS: INSULIN REGULAR, HUMAN 100 UNITS/ML, 3 ML VIAL (humuLIN R) SUBCUT PRN (00:25)
[2024-02-21 06:52] LABS: BASOPHILS % (AUTO) 0.5 % (0.0-2.0); EOSINOPHILS # (AUTO) 0.1 K/uL (0.0-0.4); EOSINOPHILS % (AUTO) 1.5 % (0.0-4.0); HEMOGLOBIN 8.8 g/dL (14.0-18.0); LYMPHOCYTES # (AUTO) 1.2 K/uL (1.0-5.5); LYMPHOCYTES % (AUTO) 15.1 % (20.5-51.5); MEAN CORPUSCULAR HEMOGLOBIN 33 pg (27-31); MEAN CORPUSCULAR HGB CONC 34 % (32-36); MEAN CORPUSCULAR VOLUME 96 fL (79.0-98.0); MONOCYTES # (AUTO) 0.9 K/uL (0.0-1.0); MONOCYTES % (AUTO) 11.8 % (1.7-9.3); NEUTROPHILS # (AUTO) 5.6 K/uL (1.8-7.7); NEUTROPHILS % (AUTO) 71.1 % (40.0-70.0); PLATELET COUNT (AUTO) 255 K/uL (130-430); RED CELL DISTRIBUTION WIDTH 13.8 % (9.0-15.0); WHITE BLOOD COUNT (AUTO) 7.9 K/uL (4.8-10.8)
[2024-02-21 07:29] LABS: ALBUMIN 2.3 g/dL (3.4-4.8); CALCIUM 8.4 mg/dL (8.4-11.0); POTASSIUM 3.7 mmol/L (3.5-5.1); TOTAL BILIRUBIN 0.3 mg/dL (0.0-1.0); TOTAL PROTEIN, SERUM 6.3 g/dL (6.4-8.3)
[2024-02-21 08:12] LABS: CREATININE 8.73 mg/dL (0.55-1.30)
[2024-02-21 09:10] VITALS: O2SAT 95
[2024-02-21 12:08] VITALS: BP_SYST 132; PULSE 89; RESP 17; TEMP 97; O2SAT 97
[2024-02-21] MEDS: HEPARIN SODIUM,PORCINE 5,000 UNITS/ML VIAL IV SCH (12:53)
[2024-02-21 15:52] VITALS: BP_SYST 126; PULSE 78; RESP 18; TEMP 98.1; O2SAT 95
[2024-02-21 16:10] VITALS: BP_SYST 123; PULSE 100; RESP 18; TEMP 97.2; O2SAT 96
[2024-02-21 20:00] VITALS: BP_SYST 122; PULSE 101; RESP 12; TEMP 98.6; O2SAT 91
[2024-02-22] VITALS: BP_SYST 109; PULSE 100; RESP 12; TEMP 98.8; O2SAT 91
[2024-02-22 08:00] VITALS: BP_SYST 147; PULSE 87; RESP 20; TEMP 97.4; O2SAT 96
[2024-02-22 08:20] VITALS: O2SAT 96
[2024-02-22 08:32] LABS: BASOPHILS % (AUTO) 0.5 % (0.0-2.0); EOSINOPHILS # (AUTO) 0.1 K/uL (0.0-0.4); EOSINOPHILS % (AUTO) 1.3 % (0.0-4.0); HEMATOCRIT 30.6 % (36-54); HEMOGLOBIN 10.1 g/dL (14.0-18.0); LYMPHOCYTES % (AUTO) 10.2 % (20.5-51.5); MEAN CORPUSCULAR HEMOGLOBIN 32 pg (27-31); MEAN CORPUSCULAR HGB CONC 33 % (32-36); MEAN CORPUSCULAR VOLUME 97 fL (79.0-98.0); MONOCYTES # (AUTO) 1.2 K/uL (0.0-1.0); MONOCYTES % (AUTO) 12.8 % (1.7-9.3); NEUTROPHILS # (AUTO) 7.1 K/uL (1.8-7.7); NEUTROPHILS % (AUTO) 75.2 % (40.0-70.0); PLATELET COUNT (AUTO) 297 K/uL (130-430); RED BLOOD CELL COUNT(AUTO) 3.15 MIL/uL (4.2-6.2); RED CELL DISTRIBUTION WIDTH 13.7 % (9.0-15.0); WHITE BLOOD COUNT (AUTO) 9.4 K/uL (4.8-10.8)
[2024-02-22 08:41] LABS: ALBUMIN 2.4 g/dL (3.4-4.8); CALCIUM 9.1 mg/dL (8.4-11.0); POTASSIUM 3.4 mmol/L (3.5-5.1); TOTAL BILIRUBIN 0.3 mg/dL (0.0-1.0); TOTAL PROTEIN, SERUM 7.2 g/dL (6.4-8.3)
[2024-02-22 08:44] LABS: CREATININE 7.74 mg/dL (0.55-1.30)
[2024-02-22 12:47] VITALS: BP_SYST 130; PULSE 90; RESP 18; TEMP 97.6; O2SAT 97
[2024-02-22 16:00] VITALS: BP_SYST 113; PULSE 89; RESP 18; TEMP 99.9; O2SAT 91
[2024-02-22 20:00] VITALS: BP_SYST 150; PULSE 96; RESP 19; TEMP 98.2; O2SAT 94
[2024-02-22] MEDS: HEPARIN SODIUM,PORCINE 5,000 UNITS/ML VIAL SUBCUT SCH (21:57)
[2024-02-23] VITALS (7 sets, daily range): BP systolic 112–152; PULSE 88–94; RESP 16–20; TEMP 97.3–98.1; O2SAT 93–97
[2024-02-23 09:56] LABS: BASOPHILS # (AUTO) 0.1 K/uL (0.0-0.2); BASOPHILS % (AUTO) 0.6 % (0.0-2.0); EOSINOPHILS # (AUTO) 0.2 K/uL (0.0-0.4); EOSINOPHILS % (AUTO) 2.3 % (0.0-4.0); HEMATOCRIT 27.5 % (36-54); HEMOGLOBIN 9.2 g/dL (14.0-18.0); LYMPHOCYTES % (AUTO) 11.3 % (20.5-51.5); MEAN CORPUSCULAR HEMOGLOBIN 32 pg (27-31); MEAN CORPUSCULAR HGB CONC 34 % (32-36); MEAN CORPUSCULAR VOLUME 96 fL (79.0-98.0); MONOCYTES # (AUTO) 0.7 K/uL (0.0-1.0); MONOCYTES % (AUTO) 8.5 % (1.7-9.3); NEUTROPHILS # (AUTO) 6.7 K/uL (1.8-7.7); NEUTROPHILS % (AUTO) 77.3 % (40.0-70.0); PLATELET COUNT (AUTO) 284 K/uL (130-430); RED BLOOD CELL COUNT(AUTO) 2.86 MIL/uL (4.2-6.2); RED CELL DISTRIBUTION WIDTH 13.7 % (9.0-15.0); WHITE BLOOD COUNT (AUTO) 8.7 K/uL (4.8-10.8)
[2024-02-23 10:04] LABS: ALBUMIN 2.2 g/dL (3.4-4.8); CALCIUM 8.9 mg/dL (8.4-11.0); TOTAL BILIRUBIN 0.3 mg/dL (0.0-1.0); TOTAL PROTEIN, SERUM 6.7 g/dL (6.4-8.3)
[2024-02-23 10:06] LABS: CREATININE 9.52 mg/dL (0.55-1.30); POTASSIUM 2.8 mmol/L (3.5-5.1)
[2024-02-23] MEDS: ACETAMINOPHEN 325 MG TABLET PO PRN (11:59)
[2024-02-23] MEDS: POTASSIUM CHLORIDE 20 MEQ TABLET.ER PO ONE (12:30)
[2024-02-23] MEDS: METHYLPREDNISOLONE SOD SUCC 40 MG/ML VIAL IVP ONE (13:41)
[2024-02-23] MEDS: POTASSIUM CHLORIDE 40 MEQ, LIDOCAINE JECT 2% PF 100 MG 75 MG in NS 250 ML IV ONE (13:42)
[2024-02-23] MEDS: METHYLPREDNISOLONE SOD SUCC 40 MG/ML VIAL IVP SCH (20:41)
[2024-02-23] MEDS: ISOSORBIDE DINITRATE 20 MG TABLET (ISORDIL) ONE (21:01)
[2024-02-24 00:15] VITALS: BP_SYST 117; PULSE 94; RESP 18; TEMP 98.3; O2SAT 99
[2024-02-24 08:00] VITALS: O2SAT 97
[2024-02-24 09:03] LABS: BASOPHILS % (AUTO) 0.1 % (0.0-2.0); HEMATOCRIT 25.1 % (36-54); HEMOGLOBIN 8.5 g/dL (14.0-18.0); LYMPHOCYTES # (AUTO) 0.6 K/uL (1.0-5.5); LYMPHOCYTES % (AUTO) 5.9 % (20.5-51.5); MEAN CORPUSCULAR HEMOGLOBIN 32 pg (27-31); MEAN CORPUSCULAR HGB CONC 34 % (32-36); MEAN CORPUSCULAR VOLUME 96 fL (79.0-98.0); MONOCYTES # (AUTO) 0.4 K/uL (0.0-1.0); MONOCYTES % (AUTO) 4.2 % (1.7-9.3); NEUTROPHILS # (AUTO) 8.7 K/uL (1.8-7.7); NEUTROPHILS % (AUTO) 89.8 % (40.0-70.0); PLATELET COUNT (AUTO) 309 K/uL (130-430); RED BLOOD CELL COUNT(AUTO) 2.63 MIL/uL (4.2-6.2); RED CELL DISTRIBUTION WIDTH 13.5 % (9.0-15.0); WHITE BLOOD COUNT (AUTO) 9.7 K/uL (4.8-10.8)
[2024-02-24 10:06] LABS: ALBUMIN 1.9 g/dL (3.4-4.8); TOTAL BILIRUBIN 0.2 mg/dL (0.0-1.0); TOTAL PROTEIN, SERUM 6.6 g/dL (6.4-8.3)
[2024-02-24 10:18] LABS: CREATININE 10.81 mg/dL (0.55-1.30)
[2024-02-24 11:07] VITALS: BP_SYST 130; PULSE 96; RESP 18; TEMP 97.8; O2SAT 94
[2024-02-24] MEDS ORDERED: HEPARIN SODIUM, PORCINE 10,000 UNITS/ 10 ML VIAL MC ONE (12:00)
[2024-02-24 16:15] VITALS: BP_SYST 128; PULSE 90; RESP 18; TEMP 97.7; O2SAT 94
[2024-02-24 20:00] VITALS: BP_SYST 127; PULSE 100; RESP 17; TEMP 97.2; O2SAT 95; O2SAT 97
[2024-02-25] VITALS (8 sets, daily range): BP systolic 105–147; PULSE 82–96; RESP 16–18; TEMP 97–98.7; O2SAT 95–97
[2024-02-25 07:26] LABS: BASOPHILS % (AUTO) 0.2 % (0.0-2.0); HEMATOCRIT 25.4 % (36-54); HEMOGLOBIN 8.6 g/dL (14.0-18.0); LYMPHOCYTES # (AUTO) 0.6 K/uL (1.0-5.5); LYMPHOCYTES % (AUTO) 6.5 % (20.5-51.5); MEAN CORPUSCULAR HEMOGLOBIN 32 pg (27-31); MEAN CORPUSCULAR HGB CONC 34 % (32-36); MEAN CORPUSCULAR VOLUME 96 fL (79.0-98.0); MONOCYTES # (AUTO) 0.4 K/uL (0.0-1.0); MONOCYTES % (AUTO) 4.1 % (1.7-9.3); NEUTROPHILS % (AUTO) 89.2 % (40.0-70.0); PLATELET COUNT (AUTO) 361 K/uL (130-430); RED BLOOD CELL COUNT(AUTO) 2.65 MIL/uL (4.2-6.2); RED CELL DISTRIBUTION WIDTH 13.6 % (9.0-15.0)
[2024-02-25 08:05] LABS: ALBUMIN 2.1 g/dL (3.4-4.8); CALCIUM 8.8 mg/dL (8.4-11.0); TOTAL BILIRUBIN 0.2 mg/dL (0.0-1.0); TOTAL PROTEIN, SERUM 6.5 g/dL (6.4-8.3)
[2024-02-25 08:52] LABS: CREATININE 7.78 mg/dL (0.55-1.30)
[2024-02-25] MEDS: METHYLPREDNISOLONE SOD SUCC 40 MG/ML VIAL IVP ONE (11:16)
[2024-02-25] MEDS ORDERED: NEU100 PO (12:56)
[2024-02-25] MEDS: ACETAMINOPHEN 325 MG TABLET PO PRN (13:05)
[2024-02-25] MEDS ORDERED: METHYLPREDNISOLONE SOD SUCC 40 MG/ML VIAL IVP SCH (21:00)
[2024-02-26] VITALS (7 sets, daily range): BP systolic 112–156; PULSE 74–93; RESP 16–20; TEMP 97.1–98.7; O2SAT 94–95
[2024-02-26] MEDS: HYDROcodone/ACETAMIN 10-325 MG TAB PO PRN (05:48)
[2024-02-26 06:53] LABS: BASOPHILS % (AUTO) 0.3 % (0.0-2.0); EOSINOPHILS % (AUTO) 0.3 % (0.0-4.0); HEMATOCRIT 29.1 % (36-54); HEMOGLOBIN 9.6 g/dL (14.0-18.0); LYMPHOCYTES # (AUTO) 1.6 K/uL (1.0-5.5); LYMPHOCYTES % (AUTO) 15.4 % (20.5-51.5); MEAN CORPUSCULAR HEMOGLOBIN 32 pg (27-31); MEAN CORPUSCULAR HGB CONC 33 % (32-36); MEAN CORPUSCULAR VOLUME 96 fL (79.0-98.0); MONOCYTES % (AUTO) 9.7 % (1.7-9.3); NEUTROPHILS # (AUTO) 7.7 K/uL (1.8-7.7); NEUTROPHILS % (AUTO) 74.3 % (40.0-70.0); PLATELET COUNT (AUTO) 429 K/uL (130-430); RED BLOOD CELL COUNT(AUTO) 3.03 MIL/uL (4.2-6.2); RED CELL DISTRIBUTION WIDTH 13.9 % (9.0-15.0); WHITE BLOOD COUNT (AUTO) 10.4 K/uL (4.8-10.8)
[2024-02-26 07:31] LABS: CALCIUM 9.3 mg/dL (8.4-11.0)
[2024-02-26 08:22] LABS: CREATININE 8.6 mg/dL (0.55-1.30)
[2024-02-26] MEDS: HEPARIN SODIUM,PORCINE 5,000 UNITS/ML VIAL MC PRN (10:14)
[2024-02-26] MEDS: EPOETIN ALFA 4,000 UNITS/ML VIAL SUBCUT SCH (18:08)
[2024-02-27 01:11] VITALS: BP_SYST 149; PULSE 100; RESP 19; TEMP 99.1; O2SAT 95
[2024-02-27 07:13] LABS: BASOPHILS % (AUTO) 0.3 % (0.0-2.0); EOSINOPHILS % (AUTO) 0.2 % (0.0-4.0); HEMATOCRIT 26.6 % (36-54); LYMPHOCYTES # (AUTO) 0.5 K/uL (1.0-5.5); LYMPHOCYTES % (AUTO) 4.3 % (20.5-51.5); MEAN CORPUSCULAR HEMOGLOBIN 32 pg (27-31); MEAN CORPUSCULAR HGB CONC 34 % (32-36); MEAN CORPUSCULAR VOLUME 95 fL (79.0-98.0); MONOCYTES # (AUTO) 1.5 K/uL (0.0-1.0); MONOCYTES % (AUTO) 14.2 % (1.7-9.3); NEUTROPHILS # (AUTO) 8.6 K/uL (1.8-7.7); PLATELET COUNT (AUTO) 377 K/uL (130-430); RED CELL DISTRIBUTION WIDTH 13.6 % (9.0-15.0); WHITE BLOOD COUNT (AUTO) 10.7 K/uL (4.8-10.8)
[2024-02-27 07:37] LABS: CALCIUM 8.5 mg/dL (8.4-11.0); CREATININE 7.07 mg/dL (0.55-1.30); POTASSIUM 5.1 mmol/L (3.5-5.1)
[2024-02-27 08:00] VITALS: BP_SYST 138; PULSE 96; RESP 18; TEMP 98.9; O2SAT 94; O2SAT 96
[2024-02-27 12:45] VITALS: BP_SYST 140; PULSE 87; RESP 19; TEMP 99; O2SAT 99
[2024-02-27 16:15] VITALS: BP_SYST 139; PULSE 90; RESP 18; TEMP 98.8; O2SAT 97
[2024-02-27] MEDS ORDERED: GABA-529 PO (16:20)
[2024-02-27 16:46] LABS: BILIRUBIN,DIRECT 0.1 mg/dL (0.0-0.3); TOTAL BILIRUBIN 0.3 mg/dL (0.0-1.0); TOTAL PROTEIN, SERUM 6.2 g/dL (6.4-8.3)
[2024-02-27 19:43] VITALS: BP_SYST 112; PULSE 92; RESP 18; TEMP 98.5; O2SAT 93
[2024-02-27] MEDS: ONDANSETRON HCL 4 MG/2 ML VIAL IVP PRN (22:59)
[2024-02-28] VITALS: BP_SYST 107; PULSE 76; RESP 16; TEMP 99.4; O2SAT 93
[2024-02-28] MEDS ORDERED: DEXTROSE 50% JECT 50 ML DISP.SYRIN IVP PRN (06:30)
[2024-02-28 07:26] LABS: BASOPHILS # (AUTO) 0.1 K/uL (0.0-0.2); BASOPHILS % (AUTO) 0.3 % (0.0-2.0); HEMATOCRIT 23.2 % (36-54); HEMOGLOBIN 7.4 g/dL (14.0-18.0); LYMPHOCYTES % (AUTO) 4.7 % (20.5-51.5); MEAN CORPUSCULAR HEMOGLOBIN 31 pg (27-31); MEAN CORPUSCULAR HGB CONC 32 % (32-36); MEAN CORPUSCULAR VOLUME 98 fL (79.0-98.0); MONOCYTES # (AUTO) 2.1 K/uL (0.0-1.0); MONOCYTES % (AUTO) 10.2 % (1.7-9.3); NEUTROPHILS # (AUTO) 17.6 K/uL (1.8-7.7); PLATELET COUNT (AUTO) 281 K/uL (130-430); RED BLOOD CELL COUNT(AUTO) 2.37 MIL/uL (4.2-6.2); RED CELL DISTRIBUTION WIDTH 14.3 % (9.0-15.0); WHITE BLOOD COUNT (AUTO) 20.7 K/uL (4.8-10.8)
[2024-02-28 07:28] LABS: CALCIUM 8.3 mg/dL (8.4-11.0); POTASSIUM 5.1 mmol/L (3.5-5.1)
[2024-02-28 07:36] LABS: CREATININE 9.42 mg/dL (0.55-1.30)
[2024-02-28 08:00] VITALS: O2SAT 94
[2024-02-28 10:18] LABS: NEUTROPHILS % (AUTO) 84.8 % (40.0-70.0)
[2024-02-28 12:39] VITALS: BP_SYST 109; PULSE 98; RESP 17; TEMP 98.8; O2SAT 98
[2024-02-28 12:53] LABS: BASOPHILS % (AUTO) 0.2 % (0.0-2.0); EOSINOPHILS % (AUTO) 0.1 % (0.0-4.0); HEMATOCRIT 25.2 % (36-54); HEMOGLOBIN 8.1 g/dL (14.0-18.0); LYMPHOCYTES # (AUTO) 0.8 K/uL (1.0-5.5); LYMPHOCYTES % (AUTO) 4.6 % (20.5-51.5); MEAN CORPUSCULAR HEMOGLOBIN 32 pg (27-31); MEAN CORPUSCULAR HGB CONC 32 % (32-36); MEAN CORPUSCULAR VOLUME 98 fL (79.0-98.0); MONOCYTES # (AUTO) 1.5 K/uL (0.0-1.0); MONOCYTES % (AUTO) 8.6 % (1.7-9.3); NEUTROPHILS # (AUTO) 15.4 K/uL (1.8-7.7); NEUTROPHILS % (AUTO) 86.5 % (40.0-70.0); PLATELET COUNT (AUTO) 297 K/uL (130-430); RED BLOOD CELL COUNT(AUTO) 2.57 MIL/uL (4.2-6.2); RED CELL DISTRIBUTION WIDTH 14.6 % (9.0-15.0); WHITE BLOOD COUNT (AUTO) 17.8 K/uL (4.8-10.8)
[2024-02-28] MEDS: INSULIN GLARGINE 100 UNITS/ML, 10 ML VIAL SUBCUT ONE (13:24)
[2024-02-28] MEDS: INSULIN Lispro 100 UNITS/ML, 3 ML VIAL (humaLOG) SUBCUT SCH (13:39)
[2024-02-28] MEDS: INSULIN LISPRO SLIDING SCALE 100 UNITS/ML, 3 ML VIAL (humaLOG) SUBCUT PRN (13:56)
[2024-02-28] MEDS: PIPERACILLIN/TAZOBACTAM 2.25 GM in D5W 50 ML IV SCH (14:17)
[2024-02-28] MEDS ORDERED: HEPARIN SODIUM,PORCINE 5,000 UNITS/ML VIAL MC ONE (15:15)
[2024-02-28 16:41] VITALS: BP_SYST 108; PULSE 88; RESP 16; TEMP 99; O2SAT 95
[2024-02-28] MEDS ORDERED: INSULIN Lispro 100 UNITS/ML, 3 ML VIAL (humaLOG) SUBCUT SCH (17:00)
[2024-02-28 19:35] VITALS: BP_SYST 146; PULSE 106; RESP 18; TEMP 99; O2SAT 93; O2SAT 95
[2024-02-28] MEDS: GABAPENTIN 100 MG CAPSULE PO SCH (21:50)
[2024-02-28 22:50] VITALS: BP_SYST 98; PULSE 89; RESP 20; TEMP 97.5; O2SAT 95
[2024-02-29 00:52] VITALS: BP_SYST 119; PULSE 87; RESP 16; TEMP 98.1; O2SAT 95
[2024-02-29 07:13] LABS: BASOPHILS # (AUTO) 0.1 K/uL (0.0-0.2); BASOPHILS % (AUTO) 0.4 % (0.0-2.0); EOSINOPHILS # (AUTO) 0.2 K/uL (0.0-0.4); EOSINOPHILS % (AUTO) 1.5 % (0.0-4.0); HEMOGLOBIN 7.9 g/dL (14.0-18.0); LYMPHOCYTES # (AUTO) 0.9 K/uL (1.0-5.5); LYMPHOCYTES % (AUTO) 7.8 % (20.5-51.5); MEAN CORPUSCULAR HEMOGLOBIN 32 pg (27-31); MEAN CORPUSCULAR HGB CONC 34 % (32-36); MEAN CORPUSCULAR VOLUME 94 fL (79.0-98.0); MONOCYTES # (AUTO) 1.4 K/uL (0.0-1.0); MONOCYTES % (AUTO) 12.4 % (1.7-9.3); NEUTROPHILS % (AUTO) 77.9 % (40.0-70.0); PLATELET COUNT (AUTO) 266 K/uL (130-430); RED BLOOD CELL COUNT(AUTO) 2.45 MIL/uL (4.2-6.2); WHITE BLOOD COUNT (AUTO) 11.6 K/uL (4.8-10.8)
[2024-02-29 07:18] LABS: ALBUMIN 1.9 g/dL (3.4-4.8); CALCIUM 8.6 mg/dL (8.4-11.0); POTASSIUM 3.8 mmol/L (3.5-5.1); TOTAL BILIRUBIN 0.3 mg/dL (0.0-1.0); TOTAL PROTEIN, SERUM 6.1 g/dL (6.4-8.3)
[2024-02-29 07:49] LABS: CREATININE 7.57 mg/dL (0.55-1.30)
[2024-02-29] MEDS ORDERED: INSULIN GLARGINE 100 UNITS/ML, 10 ML VIAL SUBCUT SCH ×2 (09:00→21:00)
[2024-02-29 10:20] VITALS: O2SAT 90
[2024-02-29 12:04] VITALS: BP_SYST 146; PULSE 97; RESP 20; TEMP 98.4; O2SAT 95
[2024-02-29] MEDS: LIDOCAINE PATCH 5% 1 EA TP ONE (14:00)
[2024-02-29 16:12] VITALS: BP_SYST 125; PULSE 86; RESP 16; TEMP 99; O2SAT 95
[2024-02-29 20:00] VITALS: BP_SYST 96; PULSE 82; RESP 18; TEMP 97.9; O2SAT 96
[2024-03-01] VITALS (7 sets, daily range): BP systolic 88–119; PULSE 74–90; RESP 16–18; TEMP 97.7–99.9; O2SAT 90–97
[2024-03-01 06:39] LABS: BASOPHILS % (AUTO) 0.3 % (0.0-2.0); EOSINOPHILS # (AUTO) 0.2 K/uL (0.0-0.4); EOSINOPHILS % (AUTO) 2.7 % (0.0-4.0); HEMATOCRIT 22.7 % (36-54); HEMOGLOBIN 7.7 g/dL (14.0-18.0); LYMPHOCYTES % (AUTO) 13.3 % (20.5-51.5); MEAN CORPUSCULAR HEMOGLOBIN 32 pg (27-31); MEAN CORPUSCULAR HGB CONC 34 % (32-36); MEAN CORPUSCULAR VOLUME 94 fL (79.0-98.0); MONOCYTES # (AUTO) 1.3 K/uL (0.0-1.0); MONOCYTES % (AUTO) 17.4 % (1.7-9.3); NEUTROPHILS # (AUTO) 4.8 K/uL (1.8-7.7); NEUTROPHILS % (AUTO) 66.3 % (40.0-70.0); PLATELET COUNT (AUTO) 226 K/uL (130-430); RED BLOOD CELL COUNT(AUTO) 2.43 MIL/uL (4.2-6.2); RED CELL DISTRIBUTION WIDTH 14.1 % (9.0-15.0); WHITE BLOOD COUNT (AUTO) 7.2 K/uL (4.8-10.8)
[2024-03-01 07:55] LABS: ALBUMIN 1.8 g/dL (3.4-4.8); CALCIUM 8.2 mg/dL (8.4-11.0); POTASSIUM 3.7 mmol/L (3.5-5.1); TOTAL BILIRUBIN 0.3 mg/dL (0.0-1.0)
[2024-03-01] MEDS: LIDOCAINE PATCH 5% 1 EA TP SCH (09:00)
[2024-03-01 09:35] LABS: CREATININE 9.37 mg/dL (0.55-1.30)
[2024-03-01] MEDS: LORATADINE 10 MG TABLET PO SCH (10:55)
[2024-03-01] MEDS ORDERED: IPRATROPIUM/ALBUTEROL SULFATE 3 ML AMPUL.NEB (DUONEB) INH PRN (11:30)
[2024-03-01] MEDS ORDERED: ALPRAZolam 0.25 MG TABLET PO PRN (13:45)
[2024-03-01] MEDS: VANCOMYCIN HCL 1,500 MG in NS 250 ML IV SCH (15:44)
[2024-03-02 00:55] VITALS: BP_SYST 102; PULSE 66; RESP 19; TEMP 96.8; O2SAT 94
[2024-03-02 07:59] VITALS: BP_SYST 161; PULSE 76; RESP 17; TEMP 97.3; O2SAT 95
[2024-03-02 09:15] VITALS: O2SAT 95
[2024-03-02 10:39] LABS: BASOPHILS # (AUTO) 0.1 K/uL (0.0-0.2); BASOPHILS % (AUTO) 1.1 % (0.0-2.0); EOSINOPHILS # (AUTO) 0.3 K/uL (0.0-0.4); EOSINOPHILS % (AUTO) 4.6 % (0.0-4.0); HEMATOCRIT 25.5 % (36-54); HEMOGLOBIN 8.4 g/dL (14.0-18.0); LYMPHOCYTES # (AUTO) 1.1 K/uL (1.0-5.5); LYMPHOCYTES % (AUTO) 14.7 % (20.5-51.5); MEAN CORPUSCULAR HEMOGLOBIN 31 pg (27-31); MEAN CORPUSCULAR HGB CONC 33 % (32-36); MEAN CORPUSCULAR VOLUME 96 fL (79.0-98.0); MONOCYTES # (AUTO) 0.7 K/uL (0.0-1.0); MONOCYTES % (AUTO) 9.9 % (1.7-9.3); NEUTROPHILS % (AUTO) 69.7 % (40.0-70.0); PLATELET COUNT (AUTO) 250 K/uL (130-430); RED BLOOD CELL COUNT(AUTO) 2.67 MIL/uL (4.2-6.2); RED CELL DISTRIBUTION WIDTH 14.1 % (9.0-15.0); WHITE BLOOD COUNT (AUTO) 7.2 K/uL (4.8-10.8)
[2024-03-02 10:54] LABS: CALCIUM 8.5 mg/dL (8.4-11.0); POTASSIUM 3.9 mmol/L (3.5-5.1)
[2024-03-02 10:59] LABS: CREATININE 11.33 mg/dL (0.55-1.30)
[2024-03-02 12:04] VITALS: BP_SYST 142; PULSE 72; RESP 19; TEMP 97; O2SAT 95
[2024-03-02 16:35] VITALS: BP_SYST 128; PULSE 69; RESP 18; TEMP 97.1; O2SAT 94
[2024-03-02] MEDS ORDERED: HEPARIN SODIUM,PORCINE 5,000 UNITS/ML VIAL SUBCUT ONE (17:45)
[2024-03-02] MEDS: HEPARIN SODIUM,PORCINE 5,000 UNITS/ML VIAL MC ONE (18:37)
[2024-03-02 20:00] VITALS: BP_SYST 125; PULSE 75; RESP 18; TEMP 98.2; O2SAT 95; O2SAT 96
[2024-03-02] MEDS: ZOLPIDEM TARTRATE 5 MG TABLET PO PRN (23:33)
[2024-03-03] VITALS (7 sets, daily range): BP systolic 136–161; PULSE 79–86; RESP 17–18; TEMP 97.6–98.4; O2SAT 95–98
[2024-03-03 07:00] LABS: BASOPHILS # (AUTO) 0.1 K/uL (0.0-0.2); BASOPHILS % (AUTO) 0.8 % (0.0-2.0); EOSINOPHILS # (AUTO) 0.2 K/uL (0.0-0.4); HEMOGLOBIN 7.6 g/dL (14.0-18.0); LYMPHOCYTES # (AUTO) 1.3 K/uL (1.0-5.5); LYMPHOCYTES % (AUTO) 18.7 % (20.5-51.5); MEAN CORPUSCULAR HEMOGLOBIN 32 pg (27-31); MEAN CORPUSCULAR HGB CONC 33 % (32-36); MEAN CORPUSCULAR VOLUME 95 fL (79.0-98.0); MONOCYTES # (AUTO) 0.8 K/uL (0.0-1.0); MONOCYTES % (AUTO) 11.4 % (1.7-9.3); NEUTROPHILS # (AUTO) 4.5 K/uL (1.8-7.7); NEUTROPHILS % (AUTO) 66.1 % (40.0-70.0); PLATELET COUNT (AUTO) 241 K/uL (130-430); RED BLOOD CELL COUNT(AUTO) 2.41 MIL/uL (4.2-6.2); RED CELL DISTRIBUTION WIDTH 13.9 % (9.0-15.0); WHITE BLOOD COUNT (AUTO) 6.8 K/uL (4.8-10.8)
[2024-03-03 07:26] LABS: ALBUMIN 1.7 g/dL (3.4-4.8); CALCIUM 8.4 mg/dL (8.4-11.0); POTASSIUM 4.4 mmol/L (3.5-5.1); TOTAL BILIRUBIN 0.3 mg/dL (0.0-1.0)
[2024-03-03 07:41] LABS: CREATININE 8.59 mg/dL (0.55-1.30)
[2024-03-03] MEDS: NAFCILLIN SODIUM 2 GM in NS 100 ML IV SCH (15:13)
[2024-03-04 00:08] VITALS: BP_SYST 122; PULSE 73; RESP 17; TEMP 97.5; O2SAT 97
[2024-03-04 07:41] LABS: BASOPHILS # (AUTO) 0.1 K/uL (0.0-0.2); BASOPHILS % (AUTO) 0.8 % (0.0-2.0); EOSINOPHILS # (AUTO) 0.2 K/uL (0.0-0.4); EOSINOPHILS % (AUTO) 2.4 % (0.0-4.0); HEMATOCRIT 24.4 % (36-54); HEMOGLOBIN 8.1 g/dL (14.0-18.0); LYMPHOCYTES # (AUTO) 1.3 K/uL (1.0-5.5); LYMPHOCYTES % (AUTO) 18.2 % (20.5-51.5); MEAN CORPUSCULAR HEMOGLOBIN 32 pg (27-31); MEAN CORPUSCULAR HGB CONC 33 % (32-36); MEAN CORPUSCULAR VOLUME 96 fL (79.0-98.0); MONOCYTES # (AUTO) 0.6 K/uL (0.0-1.0); MONOCYTES % (AUTO) 8.8 % (1.7-9.3); NEUTROPHILS # (AUTO) 5.1 K/uL (1.8-7.7); NEUTROPHILS % (AUTO) 69.8 % (40.0-70.0); PLATELET COUNT (AUTO) 213 K/uL (130-430); RED BLOOD CELL COUNT(AUTO) 2.55 MIL/uL (4.2-6.2); RED CELL DISTRIBUTION WIDTH 13.9 % (9.0-15.0); WHITE BLOOD COUNT (AUTO) 7.3 K/uL (4.8-10.8)
[2024-03-04 08:00] VITALS: BP_SYST 157; PULSE 80; RESP 16; TEMP 97.7; O2SAT 100; O2SAT 2
[2024-03-04 08:14] LABS: ALBUMIN 1.7 g/dL (3.4-4.8); CALCIUM 8.6 mg/dL (8.4-11.0); POTASSIUM 4.6 mmol/L (3.5-5.1); TOTAL BILIRUBIN 0.7 mg/dL (0.0-1.0); TOTAL PROTEIN, SERUM 6.1 g/dL (6.4-8.3)
[2024-03-04 08:24] LABS: CREATININE 9.72 mg/dL (0.55-1.30)
[2024-03-04 09:35] VITALS: PULSE 77; O2SAT 98
[2024-03-04] MEDS: LEVOFLOXACIN 250 MG/D5W 50 ML IV SCH (09:46)
[2024-03-04 10:50] LABS: PROTHROMBIN TIME 10.2 SECS (9.5-12.5)
[2024-03-04 12:00] VITALS: BP_SYST 148; PULSE 78; RESP 18; TEMP 97.8; O2SAT 97
[2024-03-04] MEDS ORDERED: MIDAZOLAM HCL 2 MG/2 ML VIAL (VERSED) ONE (12:40)
[2024-03-04] MEDS ORDERED: PROPOFOL 200MG/ 20ML VIAL (DIPRIVAN) IV ONE (12:40)
[2024-03-04] MEDS ORDERED: WATER FOR IRRIGATION,STERILE 1,000 ML IRRIG.SOLN IR ONE (12:40)
[2024-03-04] MEDS ORDERED: SUGAMMADEX SODIUM 200 MG/2 ML VIAL IV ONE (12:40)
[2024-03-04] MEDS ORDERED: NS 1000 ML IV.SOLN IV ONE (12:40)
[2024-03-04] MEDS ORDERED: ONDANSETRON HCL 4 MG/2 ML VIAL ONE (12:40)
[2024-03-04] MEDS ORDERED: BUPIVACAINE /EPINEPHRINE/PF 0.25% 30 ML VIAL ONE (12:40)
[2024-03-04] MEDS ORDERED: ROCURONIUM BROMIDE 10 MG/ML (ZEMURON) ONE (12:40)
[2024-03-04] MEDS ORDERED: DESFLURANE 15 MIN GAS INH ONE (12:40)
[2024-03-04] MEDS ORDERED: fentaNYL CITRATE/PF 100 MCG/2 ML AMP ONE (12:40)
[2024-03-04] MEDS ORDERED: NS IRRIG SOLN 1000 ML IR ONE (12:40)
[2024-03-04] MEDS ORDERED: LIDOCAINE MPF 2% 20 MG/1 ML, 5 ML VIAL INH ONE (12:40)
[2024-03-04] MEDS ORDERED: LIDOCAINE/EPI 1% 1:100000 20 ML VIAL ONE (12:40)
[2024-03-04] MEDS ORDERED: HYDROcodone/ACETAMIN 5-325 MG TAB (NORCO/ VICODIN) PO PRN (13:15)
[2024-03-04] MEDS: ACETAMINOPHEN I.V. 1000 MG 100 ML IV ONE (13:18)
[2024-03-04] MEDS ORDERED: MEPERIDINE HCL/PF 25 MG/ML DISP.SYRIN IVP PRN (13:45)
[2024-03-04] MEDS ORDERED: ONDANSETRON HCL 4 MG/2 ML VIAL IVP PRN (13:45)
[2024-03-04] MEDS ORDERED: hydrALAZINE HCL 20 MG/ML VIAL IVP PRN (13:45)
[2024-03-04] MEDS ORDERED: METOCLOPRAMIDE HCL 10 MG/2 ML VIAL IVP PRN (13:45)
[2024-03-04] MEDS ORDERED: HYDROmorphone 1 MG/ML INJ. CARTRIDGE IVP PRN (13:45)
[2024-03-04] MEDS: NACL 0.9% 1,000 ML IV SCH (13:45)
[2024-03-04] MEDS ORDERED: LABETALOL 100 MG/ 20ML VIAL IVP PRN (13:45)
[2024-03-04] MEDS: HYDROmorphone 2 MG/ML VIAL ONE (14:20)
[2024-03-04] MEDS: HYDROmorphone 1 MG/ML INJ. CARTRIDGE IVP PRN (14:20)
[2024-03-04] MEDS: NAFCILLIN SODIUM 2 GM in NS 100 ML IV SCH (18:01)
[2024-03-04] MEDS: HYDROmorphone 1 MG/ML INJ. CARTRIDGE IM PRN (18:03)
[2024-03-04 20:00] VITALS: BP_SYST 104; PULSE 85; RESP 18; TEMP 97.6; O2SAT 96
[2024-03-04 21:50] VITALS: O2SAT 96
[2024-03-04] MEDS: INSULIN REGULAR, HUMAN 100 UNITS/ML, 3 ML VIAL (humuLIN R) SUBCUT PRN (23:47)
[2024-03-05] VITALS: BP_SYST 99; PULSE 85; RESP 16; TEMP 98.2; O2SAT 97
[2024-03-05 07:31] LABS: ALBUMIN 1.7 g/dL (3.4-4.8); CALCIUM 8.7 mg/dL (8.4-11.0); POTASSIUM 5.3 mmol/L (3.5-5.1); TOTAL PROTEIN, SERUM 5.8 g/dL (6.4-8.3)
[2024-03-05 07:42] LABS: MEAN CORPUSCULAR HEMOGLOBIN 31 pg (27-31); MEAN CORPUSCULAR HGB CONC 32 % (32-36); MEAN CORPUSCULAR VOLUME 97 fL (79.0-98.0); PLATELET COUNT (AUTO) 265 K/uL (130-430); RED BLOOD CELL COUNT(AUTO) 2.25 MIL/uL (4.2-6.2); RED CELL DISTRIBUTION WIDTH 14.4 % (9.0-15.0); WHITE BLOOD COUNT (AUTO) 8.7 K/uL (4.8-10.8)
[2024-03-05 08:21] VITALS: BP_SYST 134; PULSE 92; RESP 16; TEMP 98.4; O2SAT 94
[2024-03-05 08:25] LABS: HEMATOCRIT 21.8 % (36-54)
[2024-03-05 08:30] LABS: CREATININE 11.24 mg/dL (0.55-1.30)
[2024-03-05] MEDS ORDERED: NALOXONE HCL 0.4 MG/ML AMP (NARCAN) IVP PRN (09:00)
[2024-03-05] MEDS ORDERED: MORPHINE 2 MG/ML INJ. SYRINGE IVP PRN (09:00)
[2024-03-05] MEDS: HYDROmorphone 1 MG/ML INJ. CARTRIDGE IM PRN (10:24)
[2024-03-05 10:44] LABS: BAND % (MANUAL) 3 % (0-6); LYMPHOCYTES % (MANUAL) 9 % (20-46)
[2024-03-05 10:45] LABS: ATYPICAL LYMPHOCYTES % 2 % (0-0); BASOPHILS % (MANUAL) 0 % (0-2); EOSINOPHILS % (MANUAL) 1 % (0-7); METAMYELOCYTES % 3 % (0-0); MONOCYTES % (MANUAL) 6 % (0-11)
[2024-03-05] MEDS ORDERED: HYDROmorphone 1 MG/ML INJ. CARTRIDGE IM PRN (10:45)
[2024-03-05 10:47] LABS: PLATELET ESTIMATE ADEQUATE (ADEQUATE)
[2024-03-05] MEDS: INSULIN GLARGINE 100 UNITS/ML, 10 ML VIAL SUBCUT ONE (10:56)
[2024-03-05 11:11] VITALS: BP_SYST 158; PULSE 98; RESP 15; TEMP 98.2; O2SAT 97
[2024-03-05] MEDS: INSULIN Lispro 100 UNITS/ML, 3 ML VIAL (humaLOG) SUBCUT SCH (13:03)
[2024-03-05] MEDS ORDERED: ZOLPIDEM TARTRATE 5 MG TABLET PO PRN (15:45)
[2024-03-05 16:10] VITALS: BP_SYST 150; PULSE 95; RESP 15; TEMP 98.4; O2SAT 97
[2024-03-06] MEDS ORDERED: INSULIN GLARGINE 100 UNITS/ML, 10 ML VIAL SUBCUT SCH (09:00)
== END 2024-03-06 23:00 | disposition short-term general hospital (02) | DRG 853 ==
LOC: SED 07:07 → STU 11:56 → SMU 02-22 20:33 → UNDODISIN 03-05 23:00
PROVIDERS: ADMIT Student in an Organized Health Care Education/Training Program; ATTEND Student in an Organized Health Care Education/Training Program
PROC: 5A1D70Z Performance of Urinary Filtration, Intermittent, Less than 6 Hours Per Day (ICD-10-PCS; 2024-02-18)
PROC: 5A1D70Z Performance of Urinary Filtration, Intermittent, Less than 6 Hours Per Day (ICD-10-PCS; 2024-02-19)
PROC: 5A1D70Z Performance of Urinary Filtration, Intermittent, Less than 6 Hours Per Day (ICD-10-PCS; 2024-02-21)
PROC: 5A1D70Z Performance of Urinary Filtration, Intermittent, Less than 6 Hours Per Day (ICD-10-PCS; 2024-02-24)
PROC: 5A1D70Z Performance of Urinary Filtration, Intermittent, Less than 6 Hours Per Day (ICD-10-PCS; 2024-02-26)
PROC: 4A00X4Z Measurement of Central Nervous Electrical Activity, External Approach (ICD-10-PCS; 2024-02-28)
PROC: 5A1D70Z Performance of Urinary Filtration, Intermittent, Less than 6 Hours Per Day (ICD-10-PCS; 2024-02-28)
PROC: 5A1D70Z Performance of Urinary Filtration, Intermittent, Less than 6 Hours Per Day (ICD-10-PCS; 2024-03-02)
PROC: 0FT44ZZ Resection of Gallbladder, Percutaneous Endoscopic Approach (ICD-10-PCS; principal; 2024-03-04 12:43)
PROC: 30233N1 Transfusion of Nonautologous Red Blood Cells into Peripheral Vein, Percutaneous Approach (ICD-10-PCS; 2024-03-05)
DX: A41.9 Sepsis, unspecified organism (principal); J18.9 Pneumonia, unspecified organism; N18.6 End stage renal disease; I13.2 Hypertensive heart and chronic kidney disease with heart failure and with stage 5 chronic kidney disease, or end stage renal disease; E87.1 Hypo-osmolality and hyponatremia; E44.0 Moderate protein-calorie malnutrition; K80.10 Calculus of gallbladder with chronic cholecystitis without obstruction; E11.22 Type 2 diabetes mellitus with diabetic chronic kidney disease; N18.9 Chronic kidney disease, unspecified; E11.40 Type 2 diabetes mellitus with diabetic neuropathy, unspecified; E11.649 Type 2 diabetes mellitus with hypoglycemia without coma; E11.65 Type 2 diabetes mellitus with hyperglycemia; I50.9 Heart failure, unspecified; M51.369 Other intervertebral disc degeneration, lumbar region without mention of lumbar back pain or lower extremity pain; E11.42 Type 2 diabetes mellitus with diabetic polyneuropathy; E78.5 Hyperlipidemia, unspecified; K59.00 Constipation, unspecified; I35.8 Other nonrheumatic aortic valve disorders; D63.1 Anemia in chronic kidney disease; Z99.2 Dependence on renal dialysis; Z79.899 Other long term (current) drug therapy; Z68.37 Body mass index [BMI] 37.0-37.9, adult; Y83.8 Other surgical procedures as the cause of abnormal reaction of the patient, or of later complication, without mention of misadventure at the time of the procedure; Y92.89 Other specified places as the place of occurrence of the external cause
CPT/HCPCS: 36415; 71045; 71250-TC; 72100; 72131; 73502; 73560; 76705; 80048; 80053; 80076; 82140; 82947; 82948; 83037; 83735; 83880; 84100; 84484; 85007; 85025; 85027; 85610; 85651; 85730; 86886; 86900; 86901; 86920; 87040; 87081; 87186; 88304; 90935; 90937; 93005; 93306; 94070; 94760; 95816; 97110-GP; 97116-GP; 97530-GP; 99285; C1727; G0378; J0131; J0885; J1030; J1171; J1644; J1815; J1956; J2250; J2405; J2543; J2704; J3010; J3370; J3480; J3490; J7030; J7040; J7050; J7060; P9021